=== PATIENT | female | born 1990 | race Caucasian/White ===

== ENCOUNTER 2018-01-13 22:45 | Emergency (ER) | payer OTHER ==
[~2018-01-13] VITALS: Ht 157.5 cm; Wt 81.7 kg
[~2018-01-13 22:45] MED LIST: SPRINTEC1 EACH PO
[2018-01-14 01:03] LABS: HEMATOCRIT 40.3 % (36.0-46.0); HEMOGLOBIN 13.4 G/DL (11.9-15.5); MCH 29.4 PG (29.0-34.0); MCHC 33.3 G/DL (30.0-36.0); MCV 88.4 FL (83-99); PLATELET COUNT 391 K/uL (156-360); RBC DIS.WIDTH-CV 13.2 % (11.8-14.6); RBC DIS.WIDTH-SD 42.6 % (39-53); RED BLOOD COUNT 4.56 M/uL (3.80-5.20); WHITE BLOOD COUNT 13.6 K/uL (4.1-10.2)
[2018-01-14 01:21] LABS: ALBUMIN 4.5 g/dL (3.2-4.8); CHLORIDE 101 mEq/L (99-109); POTASSIUM 3.9 mEq/L (3.7-5.4); SODIUM 134 mEq/L (136-147)
[2018-01-14 01:23] LABS: GLUCOSE 97 mg/dL (70-99); TOTAL PROTEIN 7.8 g/dL (6.4-8.3)
[2018-01-14 01:25] LABS: TOTAL BILIRUBIN 0.9 mg/dL (0.0-1.0)
[2018-01-14 01:27] LABS: ALKALINE PHOSPHATASE 80 IU/L (3-129); GFR ESTIMATE (CALCULATED) > 59 mL/min/
[2018-01-14 01:28] LABS: AST (GOT) 16 IU/L (2-34); UREA NITROGEN (BUN) 14 mg/dL (9-23)
[2018-01-14 01:30] LABS: ALT (GPT) 12 IU/L (3-49)
[2018-01-14 01:36] LABS: QUANTITATIVE HCG < 4.0 MIU/ML
[2018-01-14 02:20] LABS: APPEARANCE CLEAR ((CLEAR)); BILIRUBIN NEGATIVE; BLOOD NEGATIVE; COLOR COLORLESS ((YELLOW)); GLUCOSE (STRIP) NEGATIVE; KETONES NEGATIVE; LEUKOCYTES NEGATIVE; NITRITE NEGATIVE; PROTEIN (STRIP) NEGATIVE; SPECIFIC GRAVITY 1.002 (1.000-1.030); UCUL ADDED? NO; UROBILINOGEN 0.2 MG/DL (0.2-1.0)
[2018-01-14 02:55] VITALS: BP 118/79
== END 2018-01-14 02:56 | disposition home or self-care (01) ==
LOC: EME 22:45
PROVIDERS: Physician Assistant
DX: R55 Syncope and collapse (principal); T23.102A Burn of first degree of left hand, unspecified site, initial encounter; X15.3XXA Contact with hot saucepan or skillet, initial encounter; Y93.G3 Activity, cooking and baking; F17.200 Nicotine dependence, unspecified, uncomplicated
CPT/HCPCS: 80053; 81003; 84702; 85027; 93005; 99281; 99283